=== PATIENT | female | born 1940 | race Two or more races ===

== ENCOUNTER 2025-08-03 07:42 | Inpatient (IN) | payer MEDICARE, SELFPAY ==
[2025-07-20 11:49] LABS: Hematocrit 34.4 % (37.0-47.0); Hemoglobin 10.8 g/dL (12.0-16.0); INR 0.96; Mean Corp Hgb Conc. 31.4 g/dL (33.0-37.0); Mean Corpuscular Volume 87.1 fL (81.0-99.0); PT 13.1 Sec (11.4-14.6); Platelet Count 308 10^3/uL (130-400); Red Cell Dist. Width 13.8 % (11.5-14.5)
[2025-07-20 11:50] LABS: APTT 32.6 Sec (23.4-35.0)
[2025-07-20 12:05] LABS: ALT (SGPT) 20 U/L (0-35); AST (SGOT) 28 U/L (14-36); Albumin 4.5 g/dl (3.5-5.0); Alkaline Phosphatase 120 U/L (38-126); Blood Urea Nitrogen 16 mg/dl (7-17); Calcium 9.6 mg/dl (8.4-10.2); Carbon Dioxide 29 mmol/L (22-30); Chloride 105 mmol/L (98-107); Glucose 93 mg/dl (70-99); Potassium 5.0 mmol/L (3.5-5.1); Sodium 139 mmol/L (135-145); Total Protein 7.1 g/dl (6.3-8.2); eGFR > 60.00
[2025-07-20 12:29] LABS: Glycohemoglobin (HgbA1c) 5.7 % (4.0-5.9)
[2025-07-20 12:34] LABS: CEA 6.32 ng/ml
[2025-07-20 14:08] VITALS: BMI 25.3
[2025-08-03] VITALS (16 sets, daily range): BP systolic 95–157; BP diastolic 54–109; BMI 25.3
[2025-08-03] MEDS: NORMOSOL-R/PLASMALYTE-A 1000 IV ×3 (08:25→20:25)
[2025-08-03] MEDS: TYLENOL 1000 MG PO (08:26)
[2025-08-03] MEDS: HEPARIN 5000 UNITS SC (08:26)
--- NOTE | 2025-08-03 12:21 | W.OR.COLCA ---
Colon Cancer Post Op Note
Immediate Post Op
Primary Surgeon: Rahul Gonsalez MD
Advanced Practice Rn: RAMSES Pleitez
Pre-op Diagnosis: Cecal tumor, umbilical hernia
Post-op Diagnosis: Same
Procedure Performed: Robotic right colon resection
Primary repair of umbilical hernia
Anesthesia Type: GET
Specimen / Cultures: Apical lymph noded
Right colon
Estimated Blood Loss: 15cc
Complications: None
Operative Findings: Cecal mass with ink
No evidence of metastatic disease
Isoperistaltic intracorporeal anastomosis
Primary repair of 1cm umbilical hernia
Patient's brother updated in the waiting room
Colon Resection
Colon Resection
Operation performed with curative intent: Yes
Tumor Location: Cecum
Right Hemicolectomy: Right Colic
[2025-08-03 13:05] LABS: Hematocrit 33.6 % (37.0-47.0); Hemoglobin 10.8 g/dL (12.0-16.0); Mean Corp Hgb Conc. 32.1 g/dL (33.0-37.0); Mean Corpuscular Volume 83.2 fL (81.0-99.0); Nucleated Red Blood Cells % 0 %; Platelet Count 264 10^3/uL (130-400); Red Cell Dist. Width 14.1 % (11.5-14.5)
[2025-08-03] MEDS: TORADOL 10 MG IV ×2 (13:11→23:20)
[2025-08-03] MEDS: DILAUDID 0.25 MG IV (13:26)
[2025-08-03 13:30] LABS: Blood Urea Nitrogen 17 mg/dl (7-17); Calcium 8.9 mg/dl (8.4-10.2); Carbon Dioxide 18 mmol/L (22-30); Chloride 101 mmol/L (98-107); Estimated Creatinine Clearance 52 ml/min; Glucose 114 mg/dl (70-99); Potassium 4.5 mmol/L (3.5-5.1); Sodium 131 mmol/L (135-145); eGFR > 60.00
[2025-08-03] MEDS: TYLENOL 650 MG PO ×3 (17:01→23:20)
[2025-08-03] MEDS: TORADOL IV (17:02)
[2025-08-04] VITALS (7 sets, daily range): BP systolic 119–135; BP diastolic 61–90; PULSE 76; O2SAT 96; BMI 24.8
[2025-08-04] MEDS: TYLENOL 650 MG PO ×4 (03:15→19:59)
[2025-08-04] MEDS: TORADOL 10 MG IV (05:21)
[2025-08-04 06:26] LABS: Hematocrit 28.9 % (37.0-47.0); Hemoglobin 9.2 g/dL (12.0-16.0); Mean Corp Hgb Conc. 31.8 g/dL (33.0-37.0); Mean Corpuscular Volume 82.8 fL (81.0-99.0); Nucleated Red Blood Cells % 0 %; Platelet Count 231 10^3/uL (130-400); Red Cell Dist. Width 14.5 % (11.5-14.5)
[2025-08-04 06:51] LABS: Blood Urea Nitrogen 16 mg/dl (7-17); Calcium 8.6 mg/dl (8.4-10.2); Carbon Dioxide 25 mmol/L (22-30); Chloride 103 mmol/L (98-107); Estimated Creatinine Clearance 45 ml/min; Glucose 106 mg/dl (70-99); Potassium 4.4 mmol/L (3.5-5.1); Sodium 132 mmol/L (135-145); eGFR > 60.00
--- NOTE | 2025-08-04 09:12 | W.PN.CRS1 ---
Addendum entered and electronically signed by Dave Joseph MD 08/04/25 14:32:
Patient seen and examined with surgical PA. Agree with documented progress note.
She states that overall she is feeling well. Pain controlled. Ambulated hallways.
Has passed flatus. No nausea. Reports slight distention.
AF VSS
NAD AAO x 3
ABD: Soft, slightly protuberant but not distended. Incision sites with surgical glue dressings. Mild incisional tenderness. No rebound or guarding.
A/P: POD #1 status post RAL right hemicolectomy
Cautious dietary advancement to fulls
Continue with ambulation and routine postoperative supportive care
Acute blood loss anemia on chronic anemia with slight drift in hemoglobin to 9.2 from preop of 10.8. Anemia secondary to expected intraoperative blood loss and dilutional component.
Labs tomorrow a.m.
Original Note:
Today's Communication / Plan
-
fulls
d/c abdalla
d/c ivfs
lovenox
Assessment/Plan
-
POD#1 Robotic right colon resection (cecal tumor), primary repair of umbilical hernia
vitals: normal
Hgb 9.2 (10.8), WBC 8.0, Creatinine: 0.8
-Advance diet to fulls
-Lovenox to start for dvt prophylaxis, TEDS/SCDS in place
-OOB with PT/OT
-D/C IVFs
-D/C abdalla
-Pain control: tylenol/toradol standing, dilaudid/oxycodone PRN
-OR pathology pending
-Dispo: anticipate as soon as tomorrow
Subjective Data
Procedure
08/03/2025- Robotic right colon resection, primary repair of umbilical hernia
Subjective Data
Date of Service: August 04, 2025
Patient states she feels well. She denies nausea or vomiting. She is tolerating clears. Has flatus, no BMs yet. She has no pain.
Objective Data
-
Vital Signs
Temp Pulse Resp BP Pulse Ox
97.5 F 78 16 119/68 96
08/04/25 07:15 08/04/25 07:15 08/04/25 07:15 08/04/25 07:15 08/04/25 07:15
Intake & Output
08/03/25 08/04/25 08/05/25
06:59 06:59 06:59
Intake Total 1080 / 1080 1140 / 1140
Output Total 795 / 795 950 / 950
Balance 285 / 285 190 / 190
Intake:
Oral fluids 480 / 480 240 / 240
IV fluids (Total) 600 / 600 900 / 900
Normosol 300 / 300
Output:
Urine, Abdalla 675 / 675 950 / 950
Urine, Voided 120 / 120
Lab Results
08/04/25 05:40
08/04/25 05:40
Physical Exam
-
General: No Acute Distress and AOx3
Abdomen: Soft, Non Distended and Non Tender
Skin: Warm and Dry
Incision: Clear, Dry, Intact
[2025-08-04] MEDS: CELEXA 10 MG PO (10:09)
[2025-08-04] MEDS: TORADOL IV ×3 (10:10→19:09)
--- NOTE | 2025-08-04 14:30 | CM ---
Initial assessment completed with pt at bedside.
Pt is an 85yr old female admitted for hernia repair and colectomy
At baseline, pt lives in [place] at [facility].
Pt is indep with mobility and ADLs and does not currently equipment.
DME pt has access to; [facility], [employer]
Pt has had VN in the past after a SNF stay at [facility], but can not recall agency.
Pt was seen by PT who identified no skilled needs at this time.
PCP; Louann Valencia
Pharm; [facility]
PLAN; Return to [place] [facility], no needs anticipated.
[2025-08-04] MEDS: TYLENOL PO (18:01)
[2025-08-04] MEDS: NORMOSOL-R/PLASMALYTE-A IV (18:02)
[2025-08-04] MEDS: LOVENOX 40 MG SC (18:03)
[2025-08-05] MEDS: TORADOL IV ×4 (00:34→16:25)
[2025-08-05] MEDS: TYLENOL PO ×2 (00:35→05:34)
[2025-08-05 06:00] VITALS: BMI 24.8
[2025-08-05 06:32] LABS: Hematocrit 30.3 % (37.0-47.0); Hemoglobin 9.4 g/dL (12.0-16.0); Mean Corp Hgb Conc. 31.0 g/dL (33.0-37.0); Mean Corpuscular Volume 87.1 fL (81.0-99.0); Platelet Count 224 10^3/uL (130-400); Red Cell Dist. Width 14.8 % (11.5-14.5)
[2025-08-05 07:15] VITALS: BP 139/75
[2025-08-05 07:22] LABS: Blood Urea Nitrogen 15 mg/dl (7-17); Calcium 8.7 mg/dl (8.4-10.2); Carbon Dioxide 28 mmol/L (22-30); Chloride 105 mmol/L (98-107); Estimated Creatinine Clearance 45 ml/min; Glucose 77 mg/dl (70-99); Potassium 4.1 mmol/L (3.5-5.1); Sodium 135 mmol/L (135-145); eGFR > 60.00
[2025-08-05] MEDS: CELEXA 10 MG PO (08:24)
[2025-08-05] MEDS: TYLENOL 650 MG PO ×4 (08:25→20:17)
--- NOTE | 2025-08-05 08:42 | W.PN.CRS1 ---
Addendum entered and electronically signed by Dave Joseph MD 08/05/25 09:55:
Patient seen and examined with surgical PA. Agree with documented progress note.
Passing flatus, tolerating full liquid diet. Feels as though appetite is improving
Mild distention
No nausea, heartburn yesterday after taking Tylenol too quickly but completely resolved.
AFVSS
NAD AAO x 3
ABD: Softly distended with some tympany. Mild incisional tenderness. Incisions with glue dressings.
A/P: POD #2 status post RAL RHC
Cautious dietary advancement
Original Note:
Today's Communication / Plan
-
low residue
Assessment/Plan
-
POD#2 Robotic right colon resection (cecal tumor), primary repair of umbilical hernia
vitals: normal
Hgb 9.4 (9.2), WBC 6.6, Creatinine: 0.8
-Advance diet to low residue
-Lovenox for dvt prophylaxis, TEDS/SCDS in place
-OOB with PT/OT
-Voiding post abdalla removal
-Pain control: tylenol/toradol standing, dilaudid/oxycodone PRN
-OR pathology pending
-Dispo: anticipate tomorrow. Will discuss anticoagulation on d/c with Dr. Gonsalez.
Subjective Data
Procedure
08/03/2025- Robotic right colon resection, primary repair of umbilical hernia
Subjective Data
Date of Service: August 05, 2025
Patient with some heartburn after taking tylenol yesterday but resolved. Denies nausea or vomiting. FEels a little bloated. Denies pain. Tolerating fulls and she is hungry for more.
Objective Data
-
Vital Signs
Temp Pulse Resp BP Pulse Ox
98.1 F 72 16 139/75 94
08/05/25 07:15 08/05/25 07:15 08/05/25 07:15 08/05/25 07:15 08/05/25 07:15
Intake & Output
08/04/25 08/05/25 08/06/25
06:59 06:59 06:59
Intake Total 1080 / 1080 2340 / 2340 360 / 360
Output Total 795 / 795 1425 / 1425
Balance 285 / 285 915 / 915 360 / 360
Intake:
Oral fluids 480 / 480 1440 / 1440 360 / 360
IV fluids (Total) 600 / 600 900 / 900
Normosol 300 / 300
Output:
Urine, Abdalla 675 / 675 1150 / 1150
Urine, Voided 120 / 120 275 / 275
Other:
Number of approximated MODERATE 3 1
amounts of urine
Lab Results
08/05/25 05:45
08/05/25 05:45
Physical Exam
-
General: No Acute Distress, AOx3 and Well Developed
Abdomen: Soft, Distended (mild) and Non Tender
Skin: Warm and Dry
Incision: Clear, Dry, Intact
[2025-08-05 15:15] VITALS: BP 124/57
[2025-08-05] MEDS: LOVENOX 40 MG SC (17:10)
[2025-08-05 23:00] VITALS: BP 137/71
[2025-08-06] MEDS: TORADOL IV ×2 (00:04→04:44)
[2025-08-06] MEDS: TYLENOL PO ×2 (00:05→04:44)
[2025-08-06 06:00] VITALS: BMI 24.6
[2025-08-06 08:00] VITALS: BP 112/76
[2025-08-06] MEDS: CELEXA 10 MG PO (09:03)
[2025-08-06] MEDS: TYLENOL 650 MG PO ×5 (09:03→23:05)
--- NOTE | 2025-08-06 09:22 | W.PN.CRS1 ---
Today's Communication / Plan
-
As below
Assessment/Plan
-
85-year-old female with HLD, depression and a cecal mass concerning for malignancy, presents for elective surgery
POD 3 robotic RHC
AFVSS
Labs pending
� Blood per rectum
�Will hold Lovenox and Toradol and repeat CBC this a.m.
�Some blood in the stool is always expected postoperatively; will ensure that this is expected amount versus a separate bleeding event
�Will de-escalate to clears in case procedure becomes necessary; once bleeding resolves, will return back to low residue
� Continue pain control with Tylenol, oxycodone and Dilaudid as needed
� Continue home medication
�Encourage IS/OOB
Dispo�pending clinical status, likely 1 or more days
Subjective Data
Procedure
08/03/2025- Robotic right colon resection, primary repair of umbilical hernia
Subjective Data
Date of Service: August 06, 2025
This a.m., patient reported 4-5 BMs with maroon blood/coffee-ground material. Otherwise, no issues.
Pain controlled.
Denies nausea/vomiting. Tolerating diet.
+voiding
Pt is OOB.
Objective Data
-
Vital Signs
Temp Pulse Resp BP Pulse Ox
98.8 F 76 16 112/76 95
08/06/25 08:00 08/06/25 08:00 08/06/25 08:00 08/06/25 08:00 08/06/25 08:00
Intake & Output
08/05/25 08/06/25 08/07/25
06:59 06:59 06:59
Intake Total 2340 / 2340 1080 / 1080
Output Total 1425 / 1425
Balance 915 / 915 1080 / 1080
Intake:
Oral fluids 1440 / 1440 1080 / 1080
IV fluids (Total) 900 / 900
Output:
Urine, [place] 1150 / 1150
Urine, Voided 275 / 275
Other:
Number of approximated MODERATE 3 3
amounts of urine
Number of unmeasured liquid
stools
Rectum 2
Physical Exam
-
General: No Acute Distress and AOx3
HEENT: Grossly Normal
Abdomen: Soft, Non Distended, Tender (Appropriately tender near incisions), No Guarding and No Rebound
Skin: Warm and Dry
Wound: No Signs of Infection, No Skin Erythema and Other (Incisions well-approximated without erythema or drainage, covered with Dermabond)
[2025-08-06 09:26] LABS: Hematocrit 30.1 % (37.0-47.0); Hemoglobin 9.6 g/dL (12.0-16.0); Mean Corp Hgb Conc. 31.9 g/dL (33.0-37.0); Mean Corpuscular Volume 83.4 fL (81.0-99.0); Nucleated Red Blood Cells % 0 %; Platelet Count 259 10^3/uL (130-400); Red Cell Dist. Width 14.6 % (11.5-14.5)
[2025-08-06 10:23] LABS: Blood Urea Nitrogen 19 mg/dl (7-17); Calcium 8.8 mg/dl (8.4-10.2); Carbon Dioxide 27 mmol/L (22-30); Chloride 103 mmol/L (98-107); Estimated Creatinine Clearance 52 ml/min; Glucose 131 mg/dl (70-99); Potassium 3.9 mmol/L (3.5-5.1); Sodium 134 mmol/L (135-145); eGFR > 60.00
--- NOTE | 2025-08-06 10:32 | PN.CDI ---
CDI
- -
CDI:
Physician Documentation Request
Admit Date: 08/03/25 07:42
Dear Doctor/ PA,
Please review the following and provide your response in the progress notes.
Clinical Indicators:
Pt admitted for Robotic right colon resection (cecal tumor), primary repair of umbilical hernia on 08/03
Sodium labs are as below/Pt did get IVFs
Laboratory Tests
08/03/25 08/04/25 08/06/25
12:57 05:40 09:39
Sodium 131 L 132 L 134 L
Based on the above, could you clarify in the progress notes, the appropriate diagnosis, if significant, that supports the above abnormalities and additional evaluation, monitoring and/or treatment rendered:
Hyponatremia
Abnormal lab value
Other ( please specify)
Use of terms such as suspected, likely, concern for, or probable (associated with a specific diagnosis that is being evaluated, monitored, or treated as if it exists) are acceptable and can be coded in the inpatient setting, when documented at the
time of discharge.
Thank you,
Cesia Bean RN
CDI Specialist
[facility]
Please use your independent medical judgment in providing your response.
--- NOTE | 2025-08-06 14:16 | CM ---
CM following re: discharge planning.
Reviewed pt's chart.
PT and OT evaluations noted - pt has no skilled PT/OT needs.
D/C plan: home no needs. family to transport at discharge.
[2025-08-06 15:00] VITALS: BP 121/67
[2025-08-06 20:47] LABS: Hematocrit 27.7 % (37.0-47.0); Hemoglobin 9.0 g/dL (12.0-16.0)
[2025-08-06 23:17] VITALS: BP 132/77
[2025-08-07] MEDS: TYLENOL PO ×2 (03:09→16:38)
[2025-08-07 06:00] VITALS: BMI 24.5
[2025-08-07 07:20] VITALS: BP 150/75
[2025-08-07 07:54] LABS: Hematocrit 28.1 % (37.0-47.0); Hemoglobin 9.1 g/dL (12.0-16.0); Mean Corp Hgb Conc. 32.4 g/dL (33.0-37.0); Mean Corpuscular Volume 83.4 fL (81.0-99.0); Nucleated Red Blood Cells % 0 %; Platelet Count 250 10^3/uL (130-400); Red Cell Dist. Width 14.9 % (11.5-14.5)
[2025-08-07] MEDS: CELEXA 10 MG PO (08:07)
[2025-08-07] MEDS: TYLENOL 650 MG PO ×2 (08:07→13:01)
[2025-08-07 08:23] LABS: Blood Urea Nitrogen 13 mg/dl (7-17); Calcium 8.7 mg/dl (8.4-10.2); Carbon Dioxide 29 mmol/L (22-30); Chloride 106 mmol/L (98-107); Estimated Creatinine Clearance 52 ml/min; Glucose 81 mg/dl (70-99); Potassium 4.2 mmol/L (3.5-5.1); Sodium 134 mmol/L (135-145); eGFR > 60.00
--- NOTE | 2025-08-07 09:50 | W.PN.CRS1 ---
Addendum entered and electronically signed by Leilani Shelton PA-C 08/10/25 08:55:
Of note, the patient's sodium was 131 on 08/03/25. This is hyponatremia.
Original Note:
Today's Communication / Plan
-
As below
Assessment/Plan
-
85-year-old female with HLD, depression and a cecal mass concerning for malignancy, presents for elective surgery
POD 4 robotic right colectomy for possible cancer
AFVSS
- No further bleeding and her hemoglobin is stable. Her white count is normal and her sodium remains slightly low at 134, consistent with hyponatremia.
- Will advance to regular diet and possibly discharge home later today.
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
- I reviewed postop instructions (diet, activity, wound care, and follow-up).
-Final pathology is pending.
Subjective Data
Procedure
08/03/2025- Robotic right colon resection, primary repair of umbilical hernia
Subjective Data
Date of Service: August 07, 2025
She has no complaints. Her appetite is good and her bowels are functioning. There has been no more bleeding. She is only taking Tylenol for incisional discomfort.
Objective Data
-
Vital Signs
Temp Pulse Resp BP Pulse Ox
97.5 F 76 16 150/75 97
08/07/25 07:20 08/07/25 07:20 08/07/25 07:20 08/07/25 07:20 08/07/25 07:20
Intake & Output
08/06/25 08/07/25 08/08/25
06:59 06:59 06:59
Intake Total 1080 / 1080 960 / 960
Balance 1080 / 1080 960 / 960
Intake:
Oral fluids 1079 / 0913 960 / 960
Other:
Number of approximated MODERATE 3
amounts of urine
Number of unmeasured liquid
stools
Rectum 2
Lab Results
08/07/25 06:35
08/07/25 06:35
Physical Exam
-
General: No Acute Distress
Abdomen: Soft, Non Distended and Non Tender
Extremities: No Edema
Incision: Clear, Dry, Intact
--- NOTE | 2025-08-07 14:25 | CM ---
Addendum entered by Ameya Webster 08/07/25 16:22:
Per MD request, 30 days free Eliquis coupon given.
Original Note:
CM following re: discharge planning.
Reviewed pt's chart.
PT and OT evaluations noted - pt has no skilled PT/OT needs.
D/C plan: home no needs. family to transport at discharge.
[2025-08-07 15:05] VITALS: BP 155/71
== END 2025-08-07 17:04 | disposition home or self-care (01) | DRG 330 ==
LOC: 2 SOUTH 07:42
PROVIDERS: Physician Assistant; ADMITTING PHYSICIAN Surgery; FAMILY PHYSICIAN Registered Nurse
PROC: 8E0W4CZ Robotic Assisted Procedure of Trunk Region, Percutaneous Endoscopic Approach (ICD-10-PCS; 2025-08-03)
PROC: 0DTF4ZZ Resection of Right Large Intestine, Percutaneous Endoscopic Approach (ICD-10-PCS; 2025-08-03)
PROC: 0WQF4ZZ Repair Abdominal Wall, Percutaneous Endoscopic Approach (ICD-10-PCS; 2025-08-03)
DX: K42.9 Umbilical hernia without obstruction or gangrene (principal); D62 Acute posthemorrhagic anemia; K63.9 Disease of intestine, unspecified
CPT/HCPCS: 36415; 80048; 80053; 82378; 83036; 85014; 85018; 85025; 85027; 85610; 85730; 86850; 86900; 86901; 87070; 87147; 88305; 88309; 88342; 93005; 97116; 97161; 97166; J1335